=== PATIENT | male | born 1960 | race Caucasian/White ===

== ENCOUNTER 2019-03-11 12:38 | Observation (INO) ==
[2019-03-11 13:31] LABS: Basophils # 0.1 K/mcL (0.0-0.2); Basophils % 0.5 %; Eosinophils # 0.1 K/mcL (0.0-0.6); Hematocrit 32.1 % (37.5-50.1); Hemoglobin 10.9 g/dL (12.9-16.9); Immature Granulocytes % 0.2 % (0-4); Lymphocytes # 2.7 K/mcL (0.6-4.6); Lymphocytes % 28.3 %; Mean Corpuscular Hemoglobin 29.7 pg (28.0-33.3); Mean Corpuscular Volume 87.5 fL (83.0-100.0); Monocytes # 0.8 K/mcL (0.0-1.3); Monocytes % 7.8 %; Platelet Count 262 K/mcL (140-400); Red Blood Count 3.67 M/mcL (4.19-5.50); Red Cell Distribution Width 12.6 % (11.5-14.5); Segmented Neutrophils % 62.2 %; White Blood Count 9.6 K/mcL (4.3-11.1)
[2019-03-11 13:37] LABS: Prothrombin Time 11.3 Seconds (9.4-12.1)
[2019-03-11 13:56] LABS: BUN/Creatinine Ratio 30 (6-26); Blood Urea Nitrogen 35 mg/dL (8-23); Calcium 9.6 mg/dL (8.6-10.3); Carbon Dioxide 20 mEq/L (23-29); Chloride 104 mEq/L (98-107); Glucose 224 mg/dL (70-105); Osmolality,Calculated 299 (280-300); Potassium 3.6 mEq/L (3.5-5.1); Sodium 137 mEq/L (136-145); Troponin I < 0.03 ng/mL (< 0.04); eGFR For African Americans > 60 (> 60); eGFR For Non-African Americans > 60 (> 60)
[2019-03-11] MEDS ORDERED: Ondansetron 4 MG/2 ML VIAL IVP PRN (14:34)
[2019-03-11] MEDS ORDERED: Naloxone 0.4 MG/ML INJ IVP PRN (14:34)
[2019-03-11] MEDS ORDERED: D5% in Water 1,000 ML IVC PRN (14:37)
[2019-03-11] MEDS ORDERED: *HR* Dextrose 50 % in Water (Syg) 50 ML SYRINGE IVP PRN (14:37)
[2019-03-11] MEDS ORDERED: Dextrose Gel 15 GM/37.5 ML TUBE PO PRN ×2 (14:37)
[2019-03-11 16:13] LABS: Hematocrit 32.3 % (37.5-50.1); Hemoglobin 11.2 g/dL (12.9-16.9)
[2019-03-11] MEDS: Pantoprazole 40 MG VIAL IVP SCH (17:25)
[2019-03-11] MEDS: Insulin LISPRO 300 UNITS/3 ML VIAL SQ SCH (17:26)
[2019-03-11] MEDS: 0.9 % Sodium Chloride 1,000 ML IVC SCH (17:27)
[2019-03-11 20:13] LABS: Hematocrit 31.2 % (37.5-50.1); Hemoglobin 10.7 g/dL (12.9-16.9)
[2019-03-11] MEDS ORDERED: Insulin LISPRO 300 UNITS/3 ML VIAL SQ SCH (21:00)
[2019-03-12 01:34] LABS: Basophils % 0.5 %; Eosinophils # 0.2 K/mcL (0.0-0.6); Eosinophils % 2.6 %; Hematocrit 30.2 % (37.5-50.1); Hemoglobin 10.1 g/dL (12.9-16.9); Immature Granulocytes % 0.1 % (0-4); Lymphocytes # 2.9 K/mcL (0.6-4.6); Lymphocytes % 39.2 %; Mean Corpuscular HGB Conc 33.4 g/dL (31.6-35.5); Mean Corpuscular Hemoglobin 29.4 pg (28.0-33.3); Mean Corpuscular Volume 87.8 fL (83.0-100.0); Mean Platelet Volume 9.6 fL (9.4-12.4); Monocytes # 0.6 K/mcL (0.0-1.3); Monocytes % 7.8 %; Neutrophils # 3.6 K/mcL (1.6-8.9); Platelet Count 222 K/mcL (140-400); Red Blood Count 3.44 M/mcL (4.19-5.50); Red Cell Distribution Width 12.7 % (11.5-14.5); Segmented Neutrophils % 49.8 %; White Blood Count 7.3 K/mcL (4.3-11.1)
[2019-03-12 01:57] LABS: BUN/Creatinine Ratio 26 (6-26); Blood Urea Nitrogen 28 mg/dL (8-23); Calcium 8.9 mg/dL (8.6-10.3); Carbon Dioxide 23 mEq/L (23-29); Chloride 105 mEq/L (98-107); Chol/HDL Ratio 5.2 (0-4.9); Cholesterol 145 mg/dL (< 200); Glucose 142 mg/dL (70-105); HDL Cholesterol 28 mg/dL (40-59); LDL Cholesterol,Calculated 48 mg/dL (0-99); Magnesium 1.7 mg/dL (1.6-2.6); Osmolality,Calculated 292 (280-300); Potassium 3.5 mEq/L (3.5-5.1); Sodium 137 mEq/L (136-145); Triglycerides 346 mg/dL (< 150); eGFR For African Americans > 60 (> 60); eGFR For Non-African Americans > 60 (> 60)
[2019-03-12] MEDS: Pantoprazole 40 MG VIAL IVP SCH ×3 (04:29→17:28)
[2019-03-12] MEDS: 0.9 % Sodium Chloride 1,000 ML IVC SCH (04:48)
[2019-03-12] MEDS: Insulin LISPRO 300 UNITS/3 ML VIAL SQ SCH ×4 (07:55→21:04)
[2019-03-12] MEDS ORDERED: NON-FORMULARY MEDICATION 1 EACH EACH (Ezetimibe [Zetia] 10 MG) PO SCH (09:00)
[2019-03-12] MEDS ORDERED: hydroCHLOROthiazide 25 MG TABLET PO SCH (09:00)
[2019-03-12] MEDS ORDERED: amLODIPine 5 MG TABLET PO SCH (09:00)
[2019-03-12] MEDS ORDERED: Perflutren Lipid Microsphere 1.3 ML in 0.9 % Sodium Chloride 8.7 ML IVP ONE (09:29)
[2019-03-12] MEDS ORDERED: Perflutren Lipid Microsphere 2 ML VIAL ONE (09:31)
[2019-03-12] MEDS ORDERED: 0.9 % Sodium Chloride 1,000 ML IVC SCH (10:58)
[2019-03-12 11:10] LABS: Hematocrit 31.8 % (37.5-50.1); Hemoglobin 11.1 g/dL (12.9-16.9)
[2019-03-12] MEDS ORDERED: *HR* Dextrose 50 % in Water (Syg) 50 ML SYRINGE IVP PRN (11:23)
[2019-03-12] MEDS ORDERED: D5% in Water 1,000 ML IVC PRN (11:23)
[2019-03-12] MEDS ORDERED: Dextrose Gel 15 GM/37.5 ML TUBE PO PRN ×2 (11:23)
[2019-03-12] MEDS ORDERED: Lidocaine -MPF 2% 2 ML VIAL ONE (13:48)
[2019-03-12] MEDS ORDERED: *HR* Propofol 200 MG/20 ML VIAL IVP ONE (13:49)
[2019-03-12] MEDS ORDERED: *HR* Midazolam HCl 2 MG/2 ML VIAL ONE (14:19)
[2019-03-12] MEDS ORDERED: *HR* EPINEPHrine 1 MG/10 ML SYRINGE INTRATRACH PRN (14:32)
[2019-03-12 18:35] LABS: Hematocrit 32.2 % (37.5-50.1)
[2019-03-13 02:23] LABS: Hematocrit 28.3 % (37.5-50.1); Hemoglobin 10.1 g/dL (12.9-16.9); Mean Corpuscular HGB Conc 35.7 g/dL (31.6-35.5); Mean Corpuscular Hemoglobin 30.1 pg (28.0-33.3); Mean Corpuscular Volume 84.5 fL (83.0-100.0); Mean Platelet Volume 9.5 fL (9.4-12.4); Platelet Count 218 K/mcL (140-400); Red Blood Count 3.35 M/mcL (4.19-5.50); Red Cell Distribution Width 12.7 % (11.5-14.5); White Blood Count 5.3 K/mcL (4.3-11.1)
[2019-03-13] MEDS: Insulin LISPRO 300 UNITS/3 ML VIAL SQ SCH ×2 (04:46→05:05)
[2019-03-13] MEDS: Pantoprazole 40 MG VIAL IVP SCH (05:05)
[2019-03-13 10:27] LABS: Estimated Average Glucose 192 mg/dl
[2019-03-13 10:57] LABS: Hematocrit 32.2 % (37.5-50.1); Hemoglobin 11.2 g/dL (12.9-16.9)
[2019-03-13 16:39] VITALS: BP 152/82
== END 2019-03-13 17:33 | disposition home or self-care (01) ==
LOC: 3BNU 12:38 → EMEROOARM 12:38 → 3BNU 15:18
PROVIDERS: ADMIT Student in an Organized Health Care Education/Training Program; ATTEND Student in an Organized Health Care Education/Training Program

== ENCOUNTER 2021-01-07 14:17 | Inpatient (IN) ==
[2021-01-07 16:47] LABS: Influenza A PCR Negative (Negative); Influenza B PCR Negative (Negative); Resp. Syncytial Virus PCR Negative (Negative)
[2021-01-07 16:53] LABS: SARS-CoV-2 by PCR (In House) Positive (Negative)
[2021-01-07 22:29] LABS: Hematocrit 36.2 % (37.5-50.1); Hemoglobin 11.6 g/dL (12.9-16.9); Immature Granulocytes % 0.3 % (0-4); Lymphocytes # 0.5 K/mcL (0.6-4.6); Lymphocytes % 17.8 %; Mean Corpuscular Hemoglobin 25.9 pg (28.0-33.3); Mean Corpuscular Volume 80.8 fL (83.0-100.0); Mean Platelet Volume 9.5 fL (9.4-12.4); Monocytes # 0.2 K/mcL (0.0-1.3); Monocytes % 5.9 %; Neutrophils # 2.3 K/mcL (1.6-8.9); Platelet Count 207 K/mcL (140-400); Red Blood Count 4.48 M/mcL (4.19-5.50); Red Cell Distribution Width 17.1 % (11.5-14.5)
[2021-01-07 22:50] LABS: Troponin I 0.03 ng/mL (< 0.04)
[2021-01-07] MEDS ORDERED: Dexamethasone Sodium Phos/PF 10 MG/ML VIAL IVP ONE (23:00)
[2021-01-08 00:55] LABS: Albumin 3.8 g/dL (3.5-5.7); Albumin/Globulin Ratio 1.3 (1.1-2.2); Bilirubin,Direct 0.1 mg/dL (0.0-0.2); Bilirubin,Indirect 0.4 mg/dL (0.0-1.0); Bilirubin,Total 0.5 mg/dL (0.3-1.0); Total Protein 6.8 g/dL (6.4-8.9)
[2021-01-08] MEDS ORDERED: Acetaminophen 325 MG TABLET PO ONE (02:00)
[2021-01-08] MEDS ORDERED: Ondansetron 4 MG/2 ML VIAL IVP ONE (02:06)
[2021-01-08] MEDS ORDERED: *HR* Promethazine 25 MG/ML VIAL IM PRN (02:17)
[2021-01-08] MEDS ORDERED: Melatonin 3 MG TABLET PO PRN (02:17)
[2021-01-08] MEDS ORDERED: Ondansetron 4 MG/2 ML VIAL IVP PRN (02:17)
[2021-01-08] MEDS ORDERED: Naloxone 0.4 MG/ML INJ IVP PRN (02:17)
[2021-01-08] MEDS ORDERED: *HR* Dextrose 50 % in Water (Vial) 50 ML VIAL IVP PRN (02:22)
[2021-01-08] MEDS ORDERED: Dextrose Gel 15 GM/37.5 ML TUBE PO PRN ×2 (02:22)
[2021-01-08] MEDS ORDERED: D5% in Water 1,000 ML IVC PRN (02:22)
[2021-01-08] MEDS ORDERED: Ringers Solution, Lactated 1,000 ML IVC SCH (02:30)
[2021-01-08] MEDS ORDERED: Remdesivir 200 MG in 0.9 % Sodium Chloride 100 ML IVPB ONE (04:00)
[2021-01-08] MEDS: *HR* Enoxaparin 40 MG/0.4 ML SYRINGE SQ SCH (06:27)
[2021-01-08 07:23] LABS: Hemoglobin 10.7 g/dL (12.9-16.9); Immature Granulocytes % 0.5 % (0-4); Lymphocytes # 0.4 K/mcL (0.6-4.6); Lymphocytes % 10.5 %; Mean Corpuscular HGB Conc 31.5 g/dL (31.6-35.5); Mean Corpuscular Hemoglobin 25.7 pg (28.0-33.3); Mean Corpuscular Volume 81.5 fL (83.0-100.0); Mean Platelet Volume 9.3 fL (9.4-12.4); Monocytes # 0.2 K/mcL (0.0-1.3); Monocytes % 5.4 %; Neutrophils # 3.1 K/mcL (1.6-8.9); Platelet Count 211 K/mcL (140-400); Red Blood Count 4.17 M/mcL (4.19-5.50); Red Cell Distribution Width 17.2 % (11.5-14.5); Segmented Neutrophils % 83.6 %; White Blood Count 3.7 K/mcL (4.3-11.1)
[2021-01-08 07:31] LABS: INR 1.2; Prothrombin Time 13.5 Seconds (9.4-12.1)
[2021-01-08 07:43] LABS: Albumin 3.8 g/dL (3.5-5.7); Albumin/Globulin Ratio 1.5 (1.1-2.2); Bilirubin,Direct 0.2 mg/dL (0.0-0.2); Bilirubin,Indirect 0.4 mg/dL (0.0-1.0); Bilirubin,Total 0.6 mg/dL (0.3-1.0); Calcium 8.5 mg/dL (8.6-10.3); Globulin 2.6 g/dL (2.4-3.5); Magnesium 1.9 mg/dL (1.6-2.6); Potassium 4.4 mEq/L (3.5-5.1); Total Protein 6.4 g/dL (6.4-8.9)
[2021-01-08] MEDS: Cholecalciferol (D-3) 1,000 UNIT (25MCG) TABLET PO SCH (09:17)
[2021-01-08] MEDS: Aspirin 81 MG TAB.CHEW PO SCH (09:17)
[2021-01-08] MEDS: Multivit/Ca/Min/Fe/FA 1 TAB TABLET PO SCH (09:17)
[2021-01-08] MEDS: Chlorhexidine Rinse 15 ML MOUTHWASH MM SCH ×2 (09:18→21:03)
[2021-01-08] MEDS: Dexamethasone Sodium Phos/PF 10 MG/ML VIAL IVP SCH (09:18)
[2021-01-08] MEDS: Insulin LISPRO 300 UNITS/3 ML VIAL SUBQ SCH ×4 (09:28→20:54)
[2021-01-08] MEDS: Ipratropium 1 PUFF INHALER IH SCH ×3 (10:09→21:32)
[2021-01-08] MEDS: Acetaminophen 325 MG TABLET PO PRN (12:43)
[2021-01-08] MEDS ORDERED: Saline Nasal Spray 44 ML BOTTLE NS PRN (13:20)
[2021-01-08] MEDS ORDERED: Saliva Stimulant 44.3ml BOTTLE PO PRN (13:20)
[2021-01-08] MEDS ORDERED: Loratadine 10 MG TABLET PO PRN (13:37)
[2021-01-08] MEDS: carvediloL 6.25 MG TABLET PO SCH (18:51)
[2021-01-08] MEDS ORDERED: Insulin DETEMIR 100 UNIT/ML X5UNITS SUBQ SCH (21:00)
[2021-01-08] MEDS: Artificial Tears SOLN 15 ML BOTTLE BOTH EYES SCH (21:03)
[2021-01-08] MEDS: Insulin DETEMIR 100 UNIT/ML X5UNITS SUBQ SCH (21:04)
[2021-01-09] MEDS: Acetaminophen 325 MG TABLET PO PRN (03:56)
[2021-01-09] MEDS: Remdesivir 100 MG in 0.9 % Sodium Chloride 100 ML IVPB SCH (03:57)
[2021-01-09] MEDS: Ipratropium 1 PUFF INHALER IH SCH ×4 (04:22→21:10)
[2021-01-09] MEDS: *HR* Enoxaparin 40 MG/0.4 ML SYRINGE SQ SCH (05:13)
[2021-01-09 07:07] LABS: Albumin 3.6 g/dL (3.5-5.7); Albumin/Globulin Ratio 1.3 (1.1-2.2); Bilirubin,Direct 0.2 mg/dL (0.0-0.2); Bilirubin,Indirect 0.4 mg/dL (0.0-1.0); Bilirubin,Total 0.6 mg/dL (0.3-1.0); Globulin 2.7 g/dL (2.4-3.5); Total Protein 6.3 g/dL (6.4-8.9)
[2021-01-09 07:11] LABS: Estimated Average Glucose 203 mg/dl; Hemoglobin A1C 8.7 %
[2021-01-09 08:49] LABS: Hematocrit 35.2 % (37.5-50.1); Hemoglobin 11.5 g/dL (12.9-16.9); Mean Corpuscular HGB Conc 32.7 g/dL (31.6-35.5); Mean Corpuscular Hemoglobin 26.4 pg (28.0-33.3); Mean Corpuscular Volume 80.9 fL (83.0-100.0); Mean Platelet Volume 9.6 fL (9.4-12.4); Platelet Count 224 K/mcL (140-400); Red Blood Count 4.35 M/mcL (4.19-5.50); Red Cell Distribution Width 17.4 % (11.5-14.5)
[2021-01-09 08:50] LABS: White Blood Count 7.5 K/mcL (4.3-11.1)
[2021-01-09] MEDS ORDERED: PARoxetine 20 MG TABLET PO SCH (09:00)
[2021-01-09] MEDS: Cholecalciferol (D-3) 1,000 UNIT (25MCG) TABLET PO SCH (09:04)
[2021-01-09] MEDS: Dexamethasone Sodium Phos/PF 10 MG/ML VIAL IVP SCH (09:04)
[2021-01-09] MEDS: amLODIPine 5 MG TABLET PO SCH (09:05)
[2021-01-09] MEDS: Aspirin 81 MG TAB.CHEW PO SCH (09:05)
[2021-01-09] MEDS: Multivit/Ca/Min/Fe/FA 1 TAB TABLET PO SCH (09:05)
[2021-01-09] MEDS: carvediloL 6.25 MG TABLET PO SCH ×2 (09:05→17:33)
[2021-01-09 09:08] LABS: Magnesium 1.9 mg/dL (1.6-2.6); Phosphorous 3.1 mg/dL (2.7-4.5)
[2021-01-09 09:10] LABS: BUN/Creatinine Ratio 22 (6-26); Blood Urea Nitrogen 29 mg/dL (8-23); C-Reactive Protein 131 mg/L (Less than 10); Calcium 8.6 mg/dL (8.6-10.3); Carbon Dioxide 21 mEq/L (23-29); Chloride 102 mEq/L (98-107); Glucose 198 mg/dL (70-105); Lactate Dehydrogenase 417 Units/L (140-271); Osmolality,Calculated 289 (280-300); Potassium 4.4 mEq/L (3.5-5.1); Sodium 134 mEq/L (136-145); eGFR For African Americans > 60 (> 60); eGFR For Non-African Americans 56 (> 60)
[2021-01-09] MEDS: Chlorhexidine Rinse 15 ML MOUTHWASH MM SCH ×2 (09:10→22:17)
[2021-01-09] MEDS: Insulin LISPRO 300 UNITS/3 ML VIAL SUBQ SCH ×4 (09:18→22:17)
[2021-01-09] MEDS: Artificial Tears SOLN 15 ML BOTTLE BOTH EYES SCH ×2 (09:27→22:17)
[2021-01-09 09:29] LABS: Ferritin 390 ng/mL (20-250)
[2021-01-09 09:36] LABS: Lymphocytes # 1.3 K/mcL (0.6-4.6); Monocytes # 0.4 K/mcL (0.0-1.3); Neutrophils # 5.9 K/mcL (1.6-8.9); Platelet Estimate Normal (Normal)
[2021-01-09] MEDS: Furosemide 20 MG/2 ML VIAL IVP SCH (12:07)
[2021-01-09] MEDS ORDERED: TOCILIZUMAB 810 MG in 0.9 % Sodium Chloride 95.5 ML IVPB ONE (13:00)
[2021-01-09] MEDS: Insulin DETEMIR 100 UNIT/ML X5UNITS SUBQ SCH (22:18)
[2021-01-10 02:18] LABS: Hematocrit 37.2 % (37.5-50.1); Mean Corpuscular HGB Conc 32.3 g/dL (31.6-35.5); Mean Corpuscular Hemoglobin 26.3 pg (28.0-33.3); Mean Corpuscular Volume 81.4 fL (83.0-100.0); Mean Platelet Volume 9.5 fL (9.4-12.4); Platelet Count 263 K/mcL (140-400); Red Blood Count 4.57 M/mcL (4.19-5.50); Red Cell Distribution Width 17.2 % (11.5-14.5); White Blood Count 8.3 K/mcL (4.3-11.1)
[2021-01-10 02:26] LABS: INR 1.2; Prothrombin Time 13.8 Seconds (9.4-12.1)
[2021-01-10 02:33] LABS: Iron 20 mcg/dL (65-175)
[2021-01-10 02:40] LABS: Alanine Aminotransferase 50 Units/L (7-52); Albumin 3.3 g/dL (3.5-5.7); Albumin/Globulin Ratio 1.1 (1.1-2.2); Alkaline Phosphatase 43 Units/L (34-104); Aspartate Amino Transferase 51 Units/L (13-39); BUN/Creatinine Ratio 29 (6-26); Bilirubin,Total 0.6 mg/dL (0.3-1.0); Blood Urea Nitrogen 35 mg/dL (8-23); C-Reactive Protein 191 mg/L (Less than 10); Calcium 8.7 mg/dL (8.6-10.3); Carbon Dioxide 22 mEq/L (23-29); Chloride 102 mEq/L (98-107); Globulin 3.1 g/dL (2.4-3.5); Glucose 280 mg/dL (70-105); Lactate Dehydrogenase 427 Units/L (140-271); Magnesium 2.3 mg/dL (1.6-2.6); Osmolality,Calculated 298 (280-300); Sodium 135 mEq/L (136-145); Total Protein 6.4 g/dL (6.4-8.9); eGFR For African Americans > 60 (> 60); eGFR For Non-African Americans > 60 (> 60)
[2021-01-10 02:52] LABS: Ferritin 520 ng/mL (20-250)
[2021-01-10 03:09] LABS: Folate > 22.3 ng/mL (3.0-16.0); Vitamin B12 1294 pg/mL (250-1100)
[2021-01-10 03:32] LABS: % Iron Saturation 6 % (20-55); Transferrin 244 mg/dL (203-362)
[2021-01-10 04:13] LABS: Lymphocytes # 0.8 K/mcL (0.6-4.6); Monocytes # 0.3 K/mcL (0.0-1.3); Neutrophils # 7.2 K/mcL (1.6-8.9)
[2021-01-10 04:14] LABS: Anisocytosis 1+ (Not Present); Hypochromasia Present (Not Present)
[2021-01-10 04:15] LABS: Platelet Estimate Normal (Normal)
[2021-01-10] MEDS: Ipratropium 1 PUFF INHALER IH SCH ×4 (04:40→21:18)
[2021-01-10] MEDS: *HR* Enoxaparin 40 MG/0.4 ML SYRINGE SQ SCH (05:12)
[2021-01-10] MEDS: Remdesivir 100 MG in 0.9 % Sodium Chloride 100 ML IVPB SCH (05:13)
[2021-01-10] MEDS ORDERED: Iron Sucrose Complex 400 MG in 0.9 % Sodium Chloride 250 ML IVPB ONE (08:10)
[2021-01-10] MEDS: Furosemide 20 MG/2 ML VIAL IVP SCH (10:00)
[2021-01-10] MEDS: Chlorhexidine Rinse 15 ML MOUTHWASH MM SCH ×2 (10:00→20:49)
[2021-01-10] MEDS: Artificial Tears SOLN 15 ML BOTTLE BOTH EYES SCH ×2 (10:01→20:47)
[2021-01-10] MEDS: Aspirin 81 MG TAB.CHEW PO SCH (10:02)
[2021-01-10] MEDS: PARoxetine 20 MG TABLET PO SCH (10:02)
[2021-01-10] MEDS: amLODIPine 5 MG TABLET PO SCH (10:02)
[2021-01-10] MEDS: Multivit/Ca/Min/Fe/FA 1 TAB TABLET PO SCH (10:03)
[2021-01-10] MEDS: carvediloL 6.25 MG TABLET PO SCH ×2 (10:03→18:26)
[2021-01-10] MEDS: Insulin LISPRO 300 UNITS/3 ML VIAL SUBQ SCH ×4 (10:04→20:46)
[2021-01-10] MEDS: Cholecalciferol (D-3) 1,000 UNIT (25MCG) TABLET PO SCH (12:39)
[2021-01-10] MEDS: Insulin DETEMIR 100 UNIT/ML X5UNITS SUBQ SCH (20:46)
[2021-01-11] MEDS: Ipratropium 1 PUFF INHALER IH SCH ×4 (03:47→21:13)
[2021-01-11] MEDS: Remdesivir 100 MG in 0.9 % Sodium Chloride 100 ML IVPB SCH (04:08)
[2021-01-11] MEDS: *HR* Enoxaparin 40 MG/0.4 ML SYRINGE SQ SCH (05:11)
[2021-01-11 05:58] LABS: Hemoglobin 12.1 g/dL (12.9-16.9); Mean Corpuscular HGB Conc 31.8 g/dL (31.6-35.5); Mean Corpuscular Volume 81.5 fL (83.0-100.0); Mean Platelet Volume 9.5 fL (9.4-12.4); Platelet Count 341 K/mcL (140-400); Red Blood Count 4.66 M/mcL (4.19-5.50); Red Cell Distribution Width 17.4 % (11.5-14.5); White Blood Count 10.5 K/mcL (4.3-11.1)
[2021-01-11 06:13] LABS: INR 1.2; Prothrombin Time 13.8 Seconds (9.4-12.1)
[2021-01-11 06:20] LABS: Alanine Aminotransferase 39 Units/L (7-52); Albumin 3.5 g/dL (3.5-5.7); Albumin/Globulin Ratio 1.3 (1.1-2.2); Alkaline Phosphatase 56 Units/L (34-104); Aspartate Amino Transferase 32 Units/L (13-39); BUN/Creatinine Ratio 44 (6-26); Bilirubin,Total 0.6 mg/dL (0.3-1.0); Blood Urea Nitrogen 52 mg/dL (8-23); Carbon Dioxide 24 mEq/L (23-29); Chloride 105 mEq/L (98-107); Globulin 2.7 g/dL (2.4-3.5); Glucose 266 mg/dL (70-105); Lactate Dehydrogenase 480 Units/L (140-271); Magnesium 2.6 mg/dL (1.6-2.6); Osmolality,Calculated 313 (280-300); Phosphorous 3.7 mg/dL (2.7-4.5); Potassium 4.4 mEq/L (3.5-5.1); Sodium 140 mEq/L (136-145); Total Protein 6.2 g/dL (6.4-8.9); eGFR For African Americans > 60 (> 60); eGFR For Non-African Americans > 60 (> 60)
[2021-01-11 06:21] LABS: Anisocytosis 1+ (Not Present); Lymphocytes # 1.1 K/mcL (0.6-4.6); Neutrophils # 9.5 K/mcL (1.6-8.9); Platelet Estimate Normal (Normal)
[2021-01-11 06:37] LABS: Ferritin 938 ng/mL (20-250)
[2021-01-11 08:29] LABS: C-Reactive Protein 93 mg/L (Less than 10)
[2021-01-11] MEDS: Artificial Tears SOLN 15 ML BOTTLE BOTH EYES SCH ×2 (09:45→20:20)
[2021-01-11] MEDS ORDERED: *HR* LORazepam 2 MG/ML VIAL IVP PRN ×2 (10:39→17:34)
[2021-01-11] MEDS: Furosemide 20 MG/2 ML VIAL IVP SCH (11:08)
[2021-01-11] MEDS: Aspirin 81 MG TAB.CHEW PO SCH (11:09)
[2021-01-11] MEDS: Chlorhexidine Rinse 15 ML MOUTHWASH MM SCH ×2 (11:09→20:21)
[2021-01-11] MEDS: amLODIPine 5 MG TABLET PO SCH (11:09)
[2021-01-11] MEDS: Cholecalciferol (D-3) 1,000 UNIT (25MCG) TABLET PO SCH (11:09)
[2021-01-11] MEDS: carvediloL 6.25 MG TABLET PO SCH ×2 (11:09→17:34)
[2021-01-11] MEDS: Multivit/Ca/Min/Fe/FA 1 TAB TABLET PO SCH (11:10)
[2021-01-11] MEDS: PARoxetine 20 MG TABLET PO SCH (11:12)
[2021-01-11] MEDS: Insulin DETEMIR 100 UNIT/ML X5UNITS SUBQ SCH ×2 (11:14→21:35)
[2021-01-11] MEDS: Insulin LISPRO 300 UNITS/3 ML VIAL SUBQ SCH ×4 (14:31→21:34)
[2021-01-11] MEDS: Dexmedetomidine HCl 400 MCG/100 ML MLS IVC SCH (21:05)
[2021-01-11] MEDS ORDERED: Haloperidol Lactate 5 MG/ML VIAL IVP ONE (23:06)
[2021-01-11] MEDS: Piperacillin/Tazobactam 3.375 GM in 0.9 % Sodium Chloride Mini Bag 100 ML IVPB SCH (23:29)
[2021-01-12] MEDS ORDERED: Haloperidol Lactate 5 MG/ML VIAL IVP ONE (00:25)
[2021-01-12] MEDS ORDERED: *HR* LORazepam 2 MG/ML VIAL IVP ONE (00:25)
[2021-01-12] MEDS: Ipratropium 1 PUFF INHALER IH SCH ×4 (03:44→21:11)
[2021-01-12] MEDS: Dexmedetomidine HCl 400 MCG/100 ML MLS IVC SCH ×2 (04:47→09:05)
[2021-01-12] MEDS: *HR* Enoxaparin 40 MG/0.4 ML SYRINGE SQ SCH (04:51)
[2021-01-12] MEDS: Remdesivir 100 MG in 0.9 % Sodium Chloride 100 ML IVPB SCH (04:51)
[2021-01-12 06:25] LABS: Basophils # 0.1 K/mcL (0.0-0.2); Basophils % 0.5 %; Hematocrit 39.8 % (37.5-50.1); Hemoglobin 12.5 g/dL (12.9-16.9); Lymphocytes # 0.8 K/mcL (0.6-4.6); Lymphocytes % 7.5 %; Mean Corpuscular HGB Conc 31.4 g/dL (31.6-35.5); Mean Corpuscular Hemoglobin 25.7 pg (28.0-33.3); Mean Corpuscular Volume 81.9 fL (83.0-100.0); Mean Platelet Volume 10.4 fL (9.4-12.4); Monocytes # 0.5 K/mcL (0.0-1.3); Monocytes % 5.1 %; Platelet Count 287 K/mcL (140-400); Red Blood Count 4.86 M/mcL (4.19-5.50); Red Cell Distribution Width 17.2 % (11.5-14.5); Segmented Neutrophils % 85.9 %; White Blood Count 10.4 K/mcL (4.3-11.1)
[2021-01-12 06:46] LABS: Neutrophils # 8.9 K/mcL (1.6-8.9)
[2021-01-12 06:55] LABS: Alanine Aminotransferase 34 Units/L (7-52); Albumin 3.7 g/dL (3.5-5.7); Albumin/Globulin Ratio 1.4 (1.1-2.2); Alkaline Phosphatase 56 Units/L (34-104); Aspartate Amino Transferase 32 Units/L (13-39); BUN/Creatinine Ratio 50 (6-26); Bilirubin,Total 0.8 mg/dL (0.3-1.0); Blood Urea Nitrogen 53 mg/dL (8-23); Carbon Dioxide 23 mEq/L (23-29); Chloride 110 mEq/L (98-107); Globulin 2.6 g/dL (2.4-3.5); Glucose 234 mg/dL (70-105); Lactate Dehydrogenase 548 Units/L (140-271); Magnesium 2.5 mg/dL (1.6-2.6); Osmolality,Calculated 318 (280-300); Phosphorous 3.6 mg/dL (2.7-4.5); Potassium 4.6 mEq/L (3.5-5.1); Sodium 143 mEq/L (136-145); Total Protein 6.3 g/dL (6.4-8.9); eGFR For African Americans > 60 (> 60); eGFR For Non-African Americans > 60 (> 60)
[2021-01-12 07:03] LABS: Calcium 9.1 mg/dL (8.6-10.3)
[2021-01-12 07:05] LABS: Ferritin 797 ng/mL (20-250)
[2021-01-12 07:26] LABS: Anisocytosis 1+ (Not Present); Platelet Estimate Normal (Normal)
[2021-01-12] MEDS: Insulin LISPRO 300 UNITS/3 ML VIAL SUBQ SCH ×4 (08:01→20:54)
[2021-01-12] MEDS: Artificial Tears SOLN 15 ML BOTTLE BOTH EYES SCH ×4 (08:02→23:47)
[2021-01-12] MEDS: Piperacillin/Tazobactam 3.375 GM in 0.9 % Sodium Chloride Mini Bag 100 ML IVPB SCH ×2 (08:02→16:26)
[2021-01-12] MEDS: carvediloL 6.25 MG TABLET PO SCH ×2 (08:02→16:25)
[2021-01-12] MEDS: Multivit/Ca/Min/Fe/FA 1 TAB TABLET PO SCH (08:02)
[2021-01-12] MEDS: Cholecalciferol (D-3) 1,000 UNIT (25MCG) TABLET PO SCH (08:03)
[2021-01-12] MEDS: amLODIPine 5 MG TABLET PO SCH (08:03)
[2021-01-12] MEDS: Aspirin 81 MG TAB.CHEW PO SCH (08:03)
[2021-01-12] MEDS: PARoxetine 20 MG TABLET PO SCH (08:03)
[2021-01-12] MEDS: Furosemide 20 MG/2 ML VIAL IVP SCH (08:04)
[2021-01-12] MEDS: Insulin DETEMIR 100 UNIT/ML X5UNITS SUBQ SCH ×2 (08:05→20:54)
[2021-01-12] MEDS: Chlorhexidine Rinse 15 ML MOUTHWASH MM SCH ×2 (08:05→20:23)
[2021-01-12 09:45] LABS: C-Reactive Protein 53 mg/L (Less than 10)
[2021-01-12 10:38] LABS: INR 1.2; Prothrombin Time 14.1 Seconds (9.4-12.1)
[2021-01-12 11:12] LABS: ABG Base Excess 1 mEq/L (-2 to 3); ABG HCO3 24 mEq/L (21-27); ABG Oxygen Saturation 92 % (95-98); ABG PCO2 33 mmHg (35-45); ABG PH 7.48 pH Units (7.32-7.45); ABG PO2 58 mmHg (85-104); ABG TCO2 26 mEq/L (20-26); Blood Gas Pressure Support 12 cm H2O
[2021-01-12] MEDS ORDERED: Furosemide 20 MG/2 ML VIAL IVP ONE (11:17)
[2021-01-12] MEDS ORDERED: *HR* Rocuronium Bromide 50 MG/5 ML VIAL IVP ONE (12:05)
[2021-01-12] MEDS ORDERED: *HR* Propofol 200 MG/20 ML VIAL IVP ONE (12:05)
[2021-01-12] MEDS ORDERED: *HR* Succinylcholine 200 MG/10 ML VIAL IVP ONE (12:05)
[2021-01-12] MEDS ORDERED: Lidocaine -MPF 1% 5 ML AMPUL INFILT ONE (13:01)
[2021-01-12] MEDS: FentaNYL (PF) 1,000 MCG/100 ML IV.SOLN IVC SCH ×2 (13:45→20:05)
[2021-01-12] MEDS: Norepinephrine 4 MG/254 ML IV.SOLN IVC SCH (13:46)
[2021-01-12] MEDS: Midazolam HCl 50 MG/100 ML IV.SOLN IVC SCH ×2 (13:47→21:37)
[2021-01-12] MEDS: Cisatracurium 200 MG in 0.9 % Sodium Chloride 180 ML IVC SCH ×2 (13:47→23:49)
[2021-01-12] MEDS ORDERED: Artificial Tears SOLN 15 ML BOTTLE BOTH EYES PRN (14:20)
[2021-01-12 20:17] LABS: ABG Base Excess 0 mEq/L (-2 to 3); ABG HCO3 28 mEq/L (21-27); ABG Oxygen Saturation 92 % (95-98); ABG PCO2 61 mmHg (35-45); ABG PH 7.27 pH Units (7.32-7.45); ABG PO2 73 mmHg (85-104); ABG TCO2 30 mEq/L (20-26); Blood Gas VT 450 cc
[2021-01-12] MEDS ORDERED: Chlorhexidine Rinse 15 ML MOUTHWASH MM SCH (21:00)
[2021-01-13] MEDS: Piperacillin/Tazobactam 3.375 GM in 0.9 % Sodium Chloride Mini Bag 100 ML IVPB SCH ×4 (00:08→23:31)
[2021-01-13] MEDS: Artificial Tears SOLN 15 ML BOTTLE BOTH EYES SCH ×6 (03:51→23:31)
[2021-01-13 04:07] LABS: Hematocrit 38.2 % (37.5-50.1); Hemoglobin 11.3 g/dL (12.9-16.9); Mean Corpuscular HGB Conc 29.6 g/dL (31.6-35.5); Mean Corpuscular Hemoglobin 25.9 pg (28.0-33.3); Mean Corpuscular Volume 87.6 fL (83.0-100.0); Mean Platelet Volume 9.7 fL (9.4-12.4); Platelet Count 327 K/mcL (140-400); Red Blood Count 4.36 M/mcL (4.19-5.50); Red Cell Distribution Width 17.9 % (11.5-14.5); White Blood Count 8.2 K/mcL (4.3-11.1)
[2021-01-13] MEDS: Ipratropium 1 PUFF INHALER IH SCH ×4 (04:19→21:54)
[2021-01-13] MEDS: FentaNYL (PF) 1,000 MCG/100 ML IV.SOLN IVC SCH (04:25)
[2021-01-13 04:27] LABS: Alanine Aminotransferase 35 Units/L (7-52); Albumin 3.4 g/dL (3.5-5.7); Albumin/Globulin Ratio 1.3 (1.1-2.2); Alkaline Phosphatase 49 Units/L (34-104); Aspartate Amino Transferase 24 Units/L (13-39); BUN/Creatinine Ratio 42 (6-26); Bilirubin,Direct 0.1 mg/dL (0.0-0.2); Bilirubin,Indirect 0.5 mg/dL (0.0-1.0); Bilirubin,Total 0.6 mg/dL (0.3-1.0); Blood Urea Nitrogen 51 mg/dL (8-23); Calcium 8.6 mg/dL (8.6-10.3); Carbon Dioxide 26 mEq/L (23-29); Chloride 112 mEq/L (98-107); Globulin 2.7 g/dL (2.4-3.5); Glucose 260 mg/dL (70-105); Osmolality,Calculated 323 (280-300); Potassium 5.1 mEq/L (3.5-5.1); Sodium 145 mEq/L (136-145); Total Protein 6.1 g/dL (6.4-8.9); eGFR For African Americans > 60 (> 60); eGFR For Non-African Americans > 60 (> 60)
[2021-01-13 04:33] LABS: ABG Base Excess 0 mEq/L (-2 to 3); ABG HCO3 26 mEq/L (21-27); ABG Oxygen Saturation 94 % (95-98); ABG PCO2 47 mmHg (35-45); ABG PH 7.35 pH Units (7.32-7.45); ABG PO2 76 mmHg (85-104); ABG TCO2 27 mEq/L (20-26); Blood Gas VT 450 cc
[2021-01-13] MEDS: *HR* Enoxaparin 40 MG/0.4 ML SYRINGE SQ SCH (05:18)
[2021-01-13] MEDS: Insulin LISPRO 300 UNITS/3 ML VIAL SUBQ SCH ×5 (08:09→23:31)
[2021-01-13] MEDS: Chlorhexidine Rinse 15 ML MOUTHWASH MM SCH ×2 (08:25→20:16)
[2021-01-13] MEDS: Aspirin 81 MG TAB.CHEW PO SCH (08:25)
[2021-01-13] MEDS: Furosemide 20 MG/2 ML VIAL IVP SCH (08:33)
[2021-01-13] MEDS: Multivit/Ca/Min/Fe/FA 1 TAB TABLET PO SCH (08:34)
[2021-01-13] MEDS: Cholecalciferol (D-3) 1,000 UNIT (25MCG) TABLET PO SCH (08:34)
[2021-01-13] MEDS: Pantoprazole 40 MG VIAL IVP SCH (08:35)
[2021-01-13] MEDS: PARoxetine 20 MG TABLET PO SCH (08:36)
[2021-01-13] MEDS: Insulin DETEMIR 100 UNIT/ML X5UNITS SUBQ SCH ×2 (08:41→20:16)
[2021-01-13] MEDS: Midazolam HCl 50 MG/100 ML IV.SOLN IVC SCH ×2 (11:10→22:25)
[2021-01-13] MEDS: FentaNYL (PF) 2,500 MCG/50 ML IV.SOLN IVC SCH (11:31)
[2021-01-13] MEDS: carvediloL 6.25 MG TABLET PO SCH ×2 (11:32→15:24)
[2021-01-13] MEDS: amLODIPine 5 MG TABLET PO SCH ×2 (11:32→15:25)
[2021-01-13] MEDS: Norepinephrine 4 MG/254 ML IV.SOLN IVC SCH (11:46)
[2021-01-13] MEDS: Cisatracurium 200 MG in 0.9 % Sodium Chloride 180 ML IVC SCH ×2 (13:36→23:44)
[2021-01-13] MEDS ORDERED: *HR* Metoprolol 5 MG/5 ML VIAL IVP ONE ×2 (15:47→15:48)
[2021-01-13] MEDS: Lacri-Lube 3.5 GM TUBE BOTH EYES SCH (20:16)
[2021-01-14] MEDS: Ipratropium 1 PUFF INHALER IH SCH ×4 (03:34→21:55)
[2021-01-14 04:06] LABS: ABG Base Excess 2 mEq/L (-2 to 3); ABG HCO3 31 mEq/L (21-27); ABG Oxygen Saturation 96 % (95-98); ABG PCO2 64 mmHg (35-45); ABG PH 7.29 pH Units (7.32-7.45); ABG PO2 98 mmHg (85-104); ABG TCO2 33 mEq/L (20-26); Blood Gas VT 450 cc
[2021-01-14] MEDS: Insulin LISPRO 300 UNITS/3 ML VIAL SUBQ SCH ×5 (04:11→20:18)
[2021-01-14] MEDS: Artificial Tears SOLN 15 ML BOTTLE BOTH EYES SCH ×6 (04:11→23:14)
[2021-01-14] MEDS: FentaNYL (PF) 2,500 MCG/50 ML IV.SOLN IVC SCH ×2 (04:50→19:29)
[2021-01-14] MEDS: *HR* Enoxaparin 40 MG/0.4 ML SYRINGE SQ SCH (04:56)
[2021-01-14 04:58] LABS: Basophils # 0.1 K/mcL (0.0-0.2); Basophils % 0.6 %; Hematocrit 41.7 % (37.5-50.1); Hemoglobin 12.5 g/dL (12.9-16.9); Immature Granulocytes % 5.7 % (0-4); Lymphocytes # 0.7 K/mcL (0.6-4.6); Lymphocytes % 7.4 %; Mean Corpuscular Hemoglobin 26.5 pg (28.0-33.3); Mean Corpuscular Volume 88.5 fL (83.0-100.0); Mean Platelet Volume 9.5 fL (9.4-12.4); Monocytes # 0.7 K/mcL (0.0-1.3); Neutrophils # 7.3 K/mcL (1.6-8.9); Nucleated Red Blood Cells 0.2 /100 WBC (0); Platelet Count 378 K/mcL (140-400); Red Blood Count 4.71 M/mcL (4.19-5.50); Segmented Neutrophils % 78.3 %; White Blood Count 9.3 K/mcL (4.3-11.1)
[2021-01-14 05:14] LABS: BUN/Creatinine Ratio 43 (6-26); Blood Urea Nitrogen 51 mg/dL (8-23); Calcium 8.8 mg/dL (8.6-10.3); Carbon Dioxide 27 mEq/L (23-29); Chloride 113 mEq/L (98-107); Glucose 205 mg/dL (70-105); Magnesium 2.8 mg/dL (1.6-2.6); Osmolality,Calculated 322 (280-300); Potassium 5.1 mEq/L (3.5-5.1); Sodium 146 mEq/L (136-145); eGFR For African Americans > 60 (> 60); eGFR For Non-African Americans > 60 (> 60)
[2021-01-14] MEDS: Midazolam HCl 50 MG/100 ML IV.SOLN IVC SCH ×2 (08:50→22:11)
[2021-01-14] MEDS: Piperacillin/Tazobactam 3.375 GM in 0.9 % Sodium Chloride Mini Bag 100 ML IVPB SCH ×3 (09:43→23:18)
[2021-01-14] MEDS: Chlorhexidine Rinse 15 ML MOUTHWASH MM SCH ×2 (09:43→20:17)
[2021-01-14] MEDS: Pantoprazole 40 MG VIAL IVP SCH (09:44)
[2021-01-14] MEDS: Furosemide 20 MG/2 ML VIAL IVP SCH (09:44)
[2021-01-14] MEDS: Dexamethasone Sodium Phos/PF 10 MG/ML VIAL IVP SCH (09:45)
[2021-01-14] MEDS: Multivit/Ca/Min/Fe/FA 1 TAB TABLET PO SCH (09:51)
[2021-01-14] MEDS: Insulin DETEMIR 100 UNIT/ML X5UNITS SUBQ SCH ×2 (09:51→20:18)
[2021-01-14] MEDS: carvediloL 6.25 MG TABLET PO SCH ×2 (09:51→16:18)
[2021-01-14] MEDS: Aspirin 81 MG TAB.CHEW GTUBE SCH (09:51)
[2021-01-14] MEDS: PARoxetine 20 MG TABLET PO SCH (09:51)
[2021-01-14] MEDS: amLODIPine 5 MG TABLET PO SCH (09:51)
[2021-01-14] MEDS: Cholecalciferol (D-3) 1,000 UNIT (25MCG) TABLET PO SCH (09:51)
[2021-01-14] MEDS: Norepinephrine 4 MG/254 ML IV.SOLN IVC SCH (10:37)
[2021-01-14] MEDS: Lacri-Lube 3.5 GM TUBE BOTH EYES SCH ×2 (12:30→20:18)
[2021-01-14] MEDS: Cisatracurium 200 MG in 0.9 % Sodium Chloride 180 ML IVC SCH (12:53)
[2021-01-14] MEDS: Dexmedetomidine HCl 400 MCG/100 ML MLS IVC SCH (16:20)
[2021-01-14] MEDS ORDERED: CISATRACURIUM IVC SCH (21:00)
[2021-01-14] MEDS ORDERED: SODIUM CHLORIDE 0.9% IVC SCH (21:00)
[2021-01-15] MEDS: Insulin LISPRO 300 UNITS/3 ML VIAL SUBQ SCH ×7 (00:06→23:48)
[2021-01-15] MEDS ORDERED: FentaNYL (PF) 1,000 MCG/100 ML IV.SOLN IVC SCH (00:15)
[2021-01-15] MEDS: Ipratropium 1 PUFF INHALER IH SCH ×4 (03:22→21:39)
[2021-01-15] MEDS: Artificial Tears SOLN 15 ML BOTTLE BOTH EYES SCH ×6 (04:03→23:12)
[2021-01-15] MEDS ORDERED: *HR* Metoprolol 5 MG/5 ML VIAL IVP ONE ×2 (04:05→04:25)
[2021-01-15 04:14] LABS: ABG Base Excess 3 mEq/L (-2 to 3); ABG HCO3 37 mEq/L (21-27); ABG Oxygen Saturation 88 % (95-98); ABG PCO2 104 mmHg (35-45); ABG PH 7.16 pH Units (7.32-7.45); ABG PO2 73 mmHg (85-104); ABG TCO2 40 mEq/L (20-26); Blood Gas VT 450 cc
[2021-01-15 04:40] LABS: BUN/Creatinine Ratio 38 (6-26); Blood Urea Nitrogen 46 mg/dL (8-23); Calcium 8.8 mg/dL (8.6-10.3); Carbon Dioxide 29 mEq/L (23-29); Chloride 110 mEq/L (98-107); Glucose 344 mg/dL (70-105); Magnesium 2.7 mg/dL (1.6-2.6); Osmolality,Calculated 324 (280-300); Potassium 6.3 mEq/L (3.5-5.1); Sodium 144 mEq/L (136-145); eGFR For African Americans > 60 (> 60); eGFR For Non-African Americans > 60 (> 60)
[2021-01-15] MEDS: *HR* Enoxaparin 40 MG/0.4 ML SYRINGE SQ SCH (05:30)
[2021-01-15] MEDS: Midazolam HCl 50 MG/100 ML IV.SOLN IVC SCH ×3 (05:53→19:30)
[2021-01-15 05:56] LABS: ABG Base Excess 4 mEq/L (-2 to 3); ABG HCO3 33 mEq/L (21-27); ABG Oxygen Saturation 89 % (95-98); ABG PCO2 68 mmHg (35-45); ABG PO2 65 mmHg (85-104); ABG TCO2 35 mEq/L (20-26); Blood Gas VT 450 cc
[2021-01-15 06:11] LABS: Basophils # 0.1 K/mcL (0.0-0.2); Basophils % 0.6 %; Eosinophils % 0.1 %; Hemoglobin 14.4 g/dL (12.9-16.9); Immature Granulocytes % 5.4 % (0-4); Lymphocytes % 6.2 %; Mean Corpuscular Hemoglobin 27.1 pg (28.0-33.3); Mean Corpuscular Volume 90.4 fL (83.0-100.0); Mean Platelet Volume 9.5 fL (9.4-12.4); Monocytes # 1.1 K/mcL (0.0-1.3); Monocytes % 6.7 %; Neutrophils # 13.3 K/mcL (1.6-8.9); Nucleated Red Blood Cells 0.2 /100 WBC (0); Platelet Count 487 K/mcL (140-400); Red Blood Count 5.31 M/mcL (4.19-5.50); Red Cell Distribution Width 17.9 % (11.5-14.5); White Blood Count 16.4 K/mcL (4.3-11.1)
[2021-01-15 06:40] LABS: Poikilocytosis 1+ (Not Present); Smudge Cells Present (Not Present)
[2021-01-15] MEDS ORDERED: carvediloL 6.25 MG TABLET PO SCH (07:30)
[2021-01-15] MEDS: Lacri-Lube 3.5 GM TUBE BOTH EYES SCH ×2 (08:33→19:46)
[2021-01-15] MEDS: Dexamethasone Sodium Phos/PF 10 MG/ML VIAL IVP SCH (08:33)
[2021-01-15] MEDS: Chlorhexidine Rinse 15 ML MOUTHWASH MM SCH ×2 (08:34→19:46)
[2021-01-15] MEDS: Insulin DETEMIR 100 UNIT/ML X5UNITS SUBQ SCH ×2 (08:34→20:51)
[2021-01-15] MEDS: Furosemide 20 MG/2 ML VIAL IVP SCH (08:36)
[2021-01-15] MEDS: Pantoprazole 40 MG VIAL IVP SCH (08:36)
[2021-01-15] MEDS: Cholecalciferol (D-3) 1,000 UNIT (25MCG) TABLET PO SCH (08:37)
[2021-01-15] MEDS: Multivit/Ca/Min/Fe/FA 1 TAB TABLET PO SCH (08:37)
[2021-01-15] MEDS: amLODIPine 5 MG TABLET PO SCH (08:37)
[2021-01-15] MEDS: Aspirin 81 MG TAB.CHEW GTUBE SCH (08:37)
[2021-01-15] MEDS: PARoxetine 20 MG TABLET PO SCH (08:37)
[2021-01-15] MEDS: Piperacillin/Tazobactam 3.375 GM in 0.9 % Sodium Chloride Mini Bag 100 ML IVPB SCH ×3 (08:37→23:24)
[2021-01-15] MEDS: Norepinephrine 4 MG/254 ML IV.SOLN IVC SCH (10:15)
[2021-01-15] MEDS: Dexmedetomidine HCl 400 MCG/100 ML MLS IVC SCH (12:06)
[2021-01-15] MEDS: Cisatracurium 200 MG in 0.9 % Sodium Chloride 180 ML IVC SCH (14:05)
[2021-01-15 14:15] LABS: BUN/Creatinine Ratio 39 (6-26); Blood Urea Nitrogen 48 mg/dL (8-23); Carbon Dioxide 32 mEq/L (23-29); Chloride 109 mEq/L (98-107); Glucose 393 mg/dL (70-105); Osmolality,Calculated 325 (280-300); Potassium 6.3 mEq/L (3.5-5.1); Sodium 143 mEq/L (136-145); eGFR For African Americans > 60 (> 60); eGFR For Non-African Americans 59 (> 60)
[2021-01-15] MEDS: FentaNYL (PF) 2,500 MCG/50 ML IV.SOLN IVC SCH (14:29)
[2021-01-15] MEDS: SODIUM ZIRCONIUM CYCLOSILICATE 5 GM POWD.PACK PO SCH (15:45)
[2021-01-15] MEDS: *HR* Metoprolol 5 MG/5 ML VIAL IVP PRN (17:22)
[2021-01-16 00:04] LABS: BUN/Creatinine Ratio 38 (6-26); Blood Urea Nitrogen 49 mg/dL (8-23); Calcium 8.8 mg/dL (8.6-10.3); Carbon Dioxide 30 mEq/L (23-29); Chloride 111 mEq/L (98-107); Glucose 373 mg/dL (70-105); Osmolality,Calculated 328 (280-300); Potassium 5.6 mEq/L (3.5-5.1); Sodium 145 mEq/L (136-145); eGFR For African Americans > 60 (> 60); eGFR For Non-African Americans 57 (> 60)
[2021-01-16] MEDS: Midazolam HCl 50 MG/100 ML IV.SOLN IVC SCH (02:00)
[2021-01-16] MEDS ORDERED: FentaNYL (PF) 2,500 MCG/50 ML IV.SOLN IVC SCH (03:03)
[2021-01-16] MEDS ORDERED: Midazolam HCl 50 MG/100 ML IV.SOLN IVC SCH (03:03)
[2021-01-16] MEDS: *HR* Metoprolol 5 MG/5 ML VIAL IVP PRN (03:04)
[2021-01-16] MEDS: Artificial Tears SOLN 15 ML BOTTLE BOTH EYES SCH ×2 (03:07→08:28)
[2021-01-16] MEDS: Ipratropium 1 PUFF INHALER IH SCH ×2 (03:37→10:07)
[2021-01-16 03:54] LABS: Basophils % 0.3 %; Eosinophils % 0.1 %; Hemoglobin 13.9 g/dL (12.9-16.9); Immature Granulocytes % 2.7 % (0-4); Lymphocytes % 7.5 %; Mean Corpuscular HGB Conc 29.6 g/dL (31.6-35.5); Mean Corpuscular Hemoglobin 26.4 pg (28.0-33.3); Mean Corpuscular Volume 89.2 fL (83.0-100.0); Mean Platelet Volume 9.8 fL (9.4-12.4); Monocytes # 0.8 K/mcL (0.0-1.3); Monocytes % 5.9 %; Neutrophils # 11.2 K/mcL (1.6-8.9); Platelet Count 366 K/mcL (140-400); Red Blood Count 5.27 M/mcL (4.19-5.50); Red Cell Distribution Width 17.9 % (11.5-14.5); Segmented Neutrophils % 83.5 %; White Blood Count 13.4 K/mcL (4.3-11.1)
[2021-01-16] MEDS: Insulin LISPRO 300 UNITS/3 ML VIAL SUBQ SCH ×2 (04:07→08:30)
[2021-01-16] MEDS: FentaNYL (PF) 2,500 MCG/50 ML IV.SOLN IVC SCH (04:13)
[2021-01-16 04:26] LABS: BUN/Creatinine Ratio 39 (6-26); Blood Urea Nitrogen 54 mg/dL (8-23); Calcium 8.9 mg/dL (8.6-10.3); Carbon Dioxide 28 mEq/L (23-29); Chloride 111 mEq/L (98-107); Glucose 343 mg/dL (70-105); Magnesium 2.9 mg/dL (1.6-2.6); Osmolality,Calculated 328 (280-300); Potassium 5.3 mEq/L (3.5-5.1); Sodium 145 mEq/L (136-145); eGFR For African Americans > 60 (> 60); eGFR For Non-African Americans 53 (> 60)
[2021-01-16 04:44] LABS: ABG Base Excess 4 mEq/L (-2 to 3); ABG HCO3 33 mEq/L (21-27); ABG Oxygen Saturation 82 % (95-98); ABG PCO2 71 mmHg (35-45); ABG PH 7.28 pH Units (7.32-7.45); ABG PO2 55 mmHg (85-104); ABG TCO2 36 mEq/L (20-26); Blood Gas Modality ASSIST CONTROL; Blood Gas VT 450 cc
[2021-01-16] MEDS: Cisatracurium 200 MG in 0.9 % Sodium Chloride 180 ML IVC SCH (05:22)
[2021-01-16] MEDS: *HR* Enoxaparin 40 MG/0.4 ML SYRINGE SQ SCH (06:12)
[2021-01-16] MEDS: Piperacillin/Tazobactam 3.375 GM in 0.9 % Sodium Chloride Mini Bag 100 ML IVPB SCH (08:26)
[2021-01-16] MEDS: Pantoprazole 40 MG VIAL IVP SCH (08:29)
[2021-01-16] MEDS: Dexamethasone Sodium Phos/PF 10 MG/ML VIAL IVP SCH (08:29)
[2021-01-16] MEDS: SODIUM ZIRCONIUM CYCLOSILICATE 5 GM POWD.PACK PO SCH (08:29)
[2021-01-16] MEDS: Furosemide 20 MG/2 ML VIAL IVP SCH (08:29)
[2021-01-16] MEDS: Insulin DETEMIR 100 UNIT/ML X5UNITS SUBQ SCH (08:29)
[2021-01-16] MEDS: Lacri-Lube 3.5 GM TUBE BOTH EYES SCH (08:30)
[2021-01-16] MEDS: PARoxetine 20 MG TABLET PO SCH (08:30)
[2021-01-16] MEDS: amLODIPine 5 MG TABLET PO SCH (08:30)
[2021-01-16] MEDS: Cholecalciferol (D-3) 1,000 UNIT (25MCG) TABLET PO SCH (08:30)
[2021-01-16] MEDS: Chlorhexidine Rinse 15 ML MOUTHWASH MM SCH (08:30)
[2021-01-16] MEDS: Aspirin 81 MG TAB.CHEW GTUBE SCH (08:30)
[2021-01-16] MEDS: Multivit/Ca/Min/Fe/FA 1 TAB TABLET PO SCH (08:30)
[2021-01-16 10:01] VITALS: TEMP 99
[2021-01-16 10:41] VITALS: BP 126/76; PULSE 98; O2SAT 87
== END 2021-01-16 11:00 | disposition expired | DRG 720 ==
LOC: 3NENU 14:17 → EMEROOARM 14:17 → SUATTDRO 01-08 04:30 → 3NENU 01-08 05:30 → SUATTDRO 01-08 13:28 → 2NNU 01-11 16:58 → ICNU 01-12 17:18
PROVIDERS: ADMIT Internal Medicine; ATTEND Internal Medicine